=== PATIENT | female | born 1990 ===

== ENCOUNTER 2019-08-18 06:02 | Inpatient (IN) | payer OTHER ==
[~2019-08-18] VITALS: Ht 172.7 cm; Wt 83.2 kg
[2019-08-24] VITALS (33 sets, daily range): BP systolic 99–143; BP diastolic 55–78; PULSE 73–100; TEMP 97.8–99
--- NOTE | 2019-08-24 07:05 | NUR ---
PATIENT TO LR4 FOR INDUCTION. CHANGED INTO GOWN, ON EFM. IV STARED, ASSESMENT COMPLETE, CONSENTS SIGNED. PATIENT HERE WITH . MASKS ON PATIENT AND FOB. PATIENT DENIES LEAKING OF FLUID, CONTRACTIONS OR BLEEDING
[2019-08-24 08:29] LABS: BASO % 0.1 % (0.0-2.0); EOS # 0.1 (0.0-0.7); GRAN # 6.5 (1.4-6.5); GRAN % 71.9 % (42.2-75.2); HEMATOCRIT 38.7 % (37.0-47.0); HEMOGLOBIN 12.9 g/dl (12.5-16.0); LYMPH # 1.5 (1.2-3.4); LYMPH % 16.2 % (20.0-51.0); MEAN CELL VOLUME 95 fl (80.0-100.0); MEAN CORPUSCULAR HEMOGLOBIN 32 pg (27.0-31.0); MEAN CORPUSCULAR HGB CONC 33 g/dl (33.0-37.0); MEAN PLATELET VOLUME 10.8 fl (7.4-10.4); MONO # 0.9 (0.1-0.6); MONO % 10.1 % (1.7-9.3); PLATELET COUNT 175 K/mm3 (130-400); RED BLOOD COUNT 4.09 M/mm3 (4.10-5.30); REDCELL DISTRIBUTION WIDTH-CV 13.2 % (11.5-14.5)
--- NOTE | 2019-08-24 13:15 | NUR ---
OF VIABLE FEMALE AT THIS TIME BY DR DIEGO. TO MOTHERS CHEST. FOB CUT CORD. CARED FOR BY SATISH Herman RN. CORD BLOOD OBTAINED. MANUAL REMOVAL OF PLACENTA AT [address] DIEGO. OXYTOCIN INFUSION AT 333 MLS/HR. FUNDAL MASSAGE PROVIDED. LEFT LABIAL REPAIRED BY DR DIEGO. ICE PACK TO PERINEUM. RECOVERY STARTED AT 1345
[2019-08-25 00:30] VITALS: BP 104/71; PULSE 78; TEMP 98.1
[2019-08-25 07:35] VITALS: BP 117/67; PULSE 70; TEMP 98.5
[2019-08-25] MEDS ORDERED: MOTRIN 800800 MG/TAB PO (08:17)
== END 2019-08-25 14:30 | disposition home or self-care (01) | DRG 807 ==
LOC: LDR 08-24 06:02 → OB 08-24 06:54 → LDR 08-24 06:54 → OB 08-24 16:00
PROVIDERS: ADMIT Obstetrics & Gynecology
PROC: 10E0XZZ Delivery of Products of Conception, External Approach (ICD-10-PCS; principal; 2019-08-24)
PROC: 10907ZC Drainage of Amniotic Fluid, Therapeutic from Products of Conception, Via Natural or Artificial Opening (ICD-10-PCS; 2019-08-24)
PROC: 0UQMXZZ Repair Vulva, External Approach (ICD-10-PCS; 2019-08-24)
PROC: 10D17Z9 Manual Extraction of Products of Conception, Retained, Via Natural or Artificial Opening (ICD-10-PCS; 2019-08-24)
DX: O70.0 First degree perineal laceration during delivery (principal); Z37.0 Single live birth; Z3A.39 39 weeks gestation of pregnancy
CPT/HCPCS: J2590; J7120